=== PATIENT | female | born 1950 | race African-American/Black ===

== ENCOUNTER → 2017-03-09 | Outpatient (CLI) | payer MEDICARE, BC, OTHER | LOC: M.ULTRA 15:48 | DX: I82.431 Acute embolism and thrombosis of right popliteal vein (principal) ==

== ENCOUNTER → 2017-03-19 | Outpatient (CLI) | payer MEDICARE, BC, OTHER ==
--- NOTE | 2017-03-19 13:47 | 2DMMODE ---
[place] [address] 2 D/M-MODE ECHOCARDIOGRAM Name: CHUCKY TAN Room: [facility]#: [id number] Admission: 03/19/17 Attend Phys: Bryan Nicholson, Discharge: Date of : 50 Date of Service: 03/19/17 1347 Report #: [id number] THIS REPORT FOR: //name// APPROVED REPORT Study performed: 03/19/2017 08:07:22 EXAM: Comprehensive 2D, Doppler, and color-flow Echocardiogram Patient Location: Out-Patient Status: routine BSA: 1.69 HR: 74 bpm BP: 122/90 mmHg Other Information Study Quality: Excellent Indications Congestive Heart Failure 2D Dimensions LVEF(%): 54.58 (>50%) IVSd: 11.65 (7-11mm) LVOT Diam: 20.05 (18-24mm) LVDd: 48.94 mm PWd: 10.29 (7-11mm) Ascending Ao: 32.93 (22-36mm) LVDs: 35.06 (25-40mm) Aortic Root: 31.96 mm Worrell's LVEF: 54.58 % Volumes Left Atrial Volume (Systole) LA ESV Index: 19.80 mL/m2 Aortic Valve AoV Peak Clark.: 1.45 m/s AO Peak Gr.: 8.46 mmHg LVOT Max P.90 mmHg AO Mean Gr.: 4.92 mmHg LVOT Mean P.28 mmHg LVOT Max V: 1.11 m/s AO V2 VTI: 26.67 cm LVOT Mean V: 0.69 m/s YAS (VTI): 2.32 cm2 LVOT V1 VTI: 19.65 cm Mitral Valve E/A Ratio: 0.49 MV Decel. Time: 310.79 [place] [address] 2 D/M-MODE ECHOCARDIOGRAM Name: CHUCKY TAN Room: [facility]#: [id number] Admission: 03/19/17 Attend Phys: Bryan Nicholson, Discharge: Date of : 50 Date of Service: 03/19/17 1347 Report #: [id number] MV E Max Clark.: 0.52 m/s MV PHT: 90.13 ms MVA (PHT): 2.44 cm2 TDI E/Lateral E': 4.73 E/Medial E': 3.25 Medial E' Clark.: 0.16 m/s Lateral E' Clark.: 0.11 m/s Pulmonary Valve PV Peak Clark.: 0.84 m/s PV Peak Gr.: 2.79 mmHg Tricuspid Valve TR Peak Gr.: 22.95 mmHg RVSP: 27.95 mmHg Left Ventricle The left ventricle is normal size. There is normal LV segmental wall motion. There is normal left ventricular wall thickness. Left ventricular systolic function is normal. The left ventricular ejection fraction is within the normal range. LVEF is 50-55%. Grade I - abnormal relaxation pattern. Right Ventricle The right ventricle is normal size. The right ventricular systolic function is normal. Atria The left atrium size is normal. The right atrium size is normal. Aortic Valve The aortic valve is normal in structure. No aortic regurgitation is present. There is no aortic valvular stenosis. Mitral Valve The mitral valve is normal in structure. Mild mitral regurgitation. No evidence of mitral valve stenosis. Tricuspid Valve The tricuspid valve is normal in structure. Mild tricuspid regurgitation. The RVSP is __28 mmHg. Pulmonic Valve The pulmonary valve is normal in structure. Mild [place] [address] 2 D/M-MODE ECHOCARDIOGRAM Name: CHUCKY TAN Room: [facility]#: [id number] Admission: 03/19/17 Attend Phys: Bryan Nicholson, Discharge: Date of : 50 Date of Service: 03/19/17 1347 Report #: [id number] Great Vessels The aortic root is normal in size. IVC is normal in size and collapses with >50% inspiration Pericardium There is no pericardial effusion. <Conclusion> LVEF is 50-55%. Mild mitral regurgitation. Mild tricuspid regurgitation. The RVSP is __28 mmHg. <ELECTRONICALLY SIGNED> By: Keyur Ramirez MD, FACC 03/19/17 1347 46 46 Keyur Ramirez MD, FACC /INF
== END ==
LOC: M.CRD 03-12 16:06
DX: I71.4 Abdominal aortic aneurysm, without rupture (principal); N28.1 Cyst of kidney, acquired; K76.89 Other specified diseases of liver; I42.9 Cardiomyopathy, unspecified; I48.91 Unspecified atrial fibrillation

== ENCOUNTER → 2017-07-24 | Outpatient (CLI) | payer MEDICARE, BC, OTHER ==
--- NOTE | 2017-07-24 16:33 | 2DMMODE ---
[place] [address] 2 D/M-MODE ECHOCARDIOGRAM Name: CHUCKY TAN Room: [facility]#: [id number] Admission: 07/24/17 Attend Phys: Rosita Carpio, Discharge: Date of : 50 Date of Service: 07/24/17 1633 Report #: [id number] THIS REPORT FOR: //name// APPROVED REPORT Study performed: 07/24/2017 14:15:17 EXAM: Limited 2D Echocardiogram Patient Location: Out-Patient Status: routine BSA: 1.62 HR: 74 bpm BP: 122/90 mmHg Other Information Study Quality: Good Indications Atrial Fibrillation Cardiomyopathy 2D Dimensions LVEF(%): 46.36 (>50%) IVSd: 12.90 (7-11mm) LVDd: 46.47 mm PWd: 10.46 (7-11mm) LVDs: 35.73 (25-40mm) Aortic Root: 29.93 mm Worrell's LVEF: 46.36 % Left Ventricle The left ventricle is normal size. There is normal LV segmental wall motion. There is normal left ventricular wall thickness. The left ventricular systolic function is normal. The left ventricular ejection fraction is within the normal range. LVEF is 50-55%. Right Ventricle The right ventricle is normal size. The right ventricular systolic function is normal. Atria The left atrium size is normal. The right atrium size is [place] [address] 2 D/M-MODE ECHOCARDIOGRAM Name: CHUCKY TAN Room: [facility]#: [id number] Admission: 07/24/17 Attend Phys: Rosita Carpio, Discharge: Date of : 50 Date of Service: 07/24/17 163 Report #: [id number] The aortic valve is normal in structure. Mitral Valve The mitral valve is normal in structure. Tricuspid Valve The tricuspid valve is normal in structure. Pulmonic Valve The pulmonary valve is normal in structure. Great Vessels The aortic root is normal in size. Pericardium There is no pericardial effusion. <Conclusion> The left ventricular systolic function is normal. The left ventricular ejection fraction is within the normal range. <ELECTRONICALLY SIGNED> By: Keyur Ramirez MD, FACC 07/24/171632 32 32 Keyur Ramirez MD, FACC /INF
== END ==
LOC: M.CRD 13:52
DX: I42.9 Cardiomyopathy, unspecified (principal); I48.91 Unspecified atrial fibrillation

== ENCOUNTER → 2018-02-04 | Outpatient (CLI) | payer MEDICARE, BC, OTHER | LOC: M.ULTRA 12:30 | DX: M79.89 Other specified soft tissue disorders (principal); M79.661 Pain in right lower leg; Z86.72 Personal history of thrombophlebitis ==

== ENCOUNTER → 2018-11-28 | Outpatient (CLI) | payer MEDICARE, BC, OTHER | LOC: M.ULTRA 09:30 | DX: I71.4 Abdominal aortic aneurysm, without rupture (principal) ==